=== PATIENT | female | born 1985 | race Caucasian/White ===

== ENCOUNTER 2024-06-16 12:05 | Emergency (ER) | payer OTHER, SELFPAY ==
[2024-06-16 12:13] VITALS: BP 149/99
--- NOTE | 2024-06-16 12:57 | ED.GENMED ---
History of Present Illness
<Rusty Whitmore PA-C - Last Filed: 06/16/24 15:29>
General
Chief Complaint: Headache
Source: patient
Exam Limitations: none
Time Seen by Provider: 06/16/24 12:43
History of Present Illness
History of Present Illness:
38-year-old female with history of migraines presents with persistent headache for the past week and a half. Right-sided headache. She has felt this way before with prior migraines. She notes a gradual onset headache. This is not sudden onset.
No vomiting she notes slight photosensitivity. No arm leg numbness or weakness. No fevers. She tried her breakthrough medication without relief. She tried over the [id number] medications without relief.
Past History
<Rusty Whitmore PA-C - Last Filed: 06/16/24 15:29>
Past History
ED Past Medical History: Arrthythmia (Palpitations), HTN and Other (Migraines, MTHFR, endometriosis, Trigeminal Neuralgia, PCOS, C-diff (15 years ago))
ED Past Surgical History: Gynecological (Ovarian cyst, Uterine fibroids, Uterine ablation. Lap for her endometriosis and was on the ovary and around the bowel), Tonsilectomy and Other (Breast reduction, wisdom teeth, Sinus surgery, )
Social History
Tobacco: Former smoker
Alcohol: None
Drug: Marijuana (Medical marijuana)
Personal: Other (Seperated)
Living: with family
Employment: Not employed (pt recently fired from her job. Stressed, insurance change so cannot get her migraine meds that used to help)
Family History
Family History: Other (Noncontributory)
Phy Exam
<MILTON Sharma Last Filed: 06/16/24 15:29>
Physical Exam
Physical Exam:
General: Well-appearing female no distress
HEENT: Normocephalic atraumatic pupils equal round reactive to light TMs normal extract motion intact
Heart: Regular rate and rhythm no murmurs lungs: Clear no wheeze or rales
Neurologic: Alert and oriented no facial asymmetry normal gait conversing appropriately
Course
<Rusty Whitmore PA-C - Last Filed: 06/16/24 15:29>
Orders/Labs/Results
Orders:
Orders
06/16/24 12:55
0.9% Sodium Chloride 1000 ml [Nss] 1,000 ml IV BOLUS
Diphenhydramine [Benadryl] 25 mg IV NOW STA
Ketorolac [Toradol] 15 mg IV NOW STA
Prochlorperazine [Compazine] 10 mg IV NOW STA
06/16/24 14:40
CT Facial Bones W/o Iv Contras Urgent
Comment:
Reason For Exam: right facial pain and headache
CT Head W/o Iv Contrast Urgent
Comment:
Reason For Exam: headache
06/16/24 15:33
Dexamethasone Sod Phosphate [Decadron] 10 mg IV NOW STA
HYDROmorphone [Dilaudid] 0.5 mg IV NOW STA
Vital Signs
Initial and Last Documented VS:
Initial Vital Signs
Temp Pulse Resp BP Pulse Ox
98.8 F 93 17 149/99 97
06/16/24 12:13 06/16/24 12:13 06/16/24 12:13 06/16/24 12:13 06/16/24 12:13
Last Documented Vital Signs
Temp Pulse Resp BP Pulse Ox
98.4 F 78 18 120/87 98
06/16/24 17:28 06/16/24 17:28 06/16/24 17:28 06/16/24 17:28 06/16/24 17:28
<Toy García PA-C - Last Filed: 06/16/24 19:12>
Orders/Labs/Results
Orders:
Orders
06/16/24 12:55
0.9% Sodium Chloride 1000 ml [Nss] 1,000 ml IV BOLUS
Diphenhydramine [Benadryl] 25 mg IV NOW STA
Ketorolac [Toradol] 15 mg IV NOW STA
Prochlorperazine [Compazine] 10 mg IV NOW STA
06/16/24 14:40
CT Facial Bones W/o Iv Contras Urgent
Comment:
Reason For Exam: right facial pain and headache
CT Head W/o Iv Contrast Urgent
Comment:
Reason For Exam: headache
06/16/24 15:33
Dexamethasone Sod Phosphate [Decadron] 10 mg IV NOW STA
HYDROmorphone [Dilaudid] 0.5 mg IV NOW STA
Vital Signs
Initial and Last Documented VS:
Initial Vital Signs
Temp Pulse Resp BP Pulse Ox
98.8 F 93 17 149/99 97
06/16/24 12:13 06/16/24 12:13 06/16/24 12:13 06/16/24 12:13 06/16/24 12:13
Last Documented Vital Signs
Temp Pulse Resp BP Pulse Ox
98.4 F 78 18 120/87 98
06/16/24 17:28 06/16/24 17:28 06/16/24 17:28 06/16/24 17:28 06/16/24 17:28
<Rusty Whitmore PA-C - Last Filed: 06/16/24 15:29>
MDM/Problems Addressed
Differential Diagnosis Includes:
Headache. Not sudden in onset. Typical and consistent with her prior migraines. No fever to suggest infectious source. Considered imaging however not indicated at this time. Will treat with medication including fluids Compazine Benadryl Toradol
<Toy García PA-C - Last Filed: 06/16/24 19:12>
*Critical Care Note
Total Time (30-74mins, 75-104mins- exclusive of procedures): Not Applicable
<Rusty Whitmore PA-C - Last Filed: 06/16/24 15:29>
Update Note
Update Note:
Patient with minimal relief with initial cocktail of Compazine Benadryl Toradol and fluids. Added Decadron and Dilaudid for significant pain. CT of head and face ordered.
<Toy García PA-C - Last Filed: 06/16/24 19:12>
Update Note
Update Note:
Patient with minimal relief with initial cocktail of Compazine Benadryl Toradol and fluids. Added Decadron and Dilaudid for significant pain. CT of head and face ordered.
Assumed care of patient at shift change from Emile Whitmore PA-C, CT shows right sinusitis which is compatible with her source of pain. She is already on Augmentin and will add a course of prednisone for symptomatic relief. Encouraged ENT
follow-up
ED Attending Note
<Rusty Whitmore PA-C - Last Filed: 06/16/24 15:29>
-
Portions of this chart may have been created with voice recognition software.� Occasional wrong word or��sound alike� substitutions may have occurred due to the inherent limitations of voice recognition software.
Discharge Plan
Departure
Patient Disposition: Home (Routine Discharge)
Date of Disposition: 06/16/24
Time of Disposition: 16:20
Patient with high blood pressure during this ER visit?: No
Discharge Problem:
Acute maxillary sinusitis
Instructions: Migraines (DC)
Prescriptions:
New
prednisone 20 mg tablet
40 mg PO DAILY 5 Days Qty: 10 0RF
No Action
valacyclovir 500 MG tablet
500 mg PO DAILY
multivitamin [Daily Multi-Vitamin] Tablet
1 tab PO DAILY
atenolol 100 mg Tablet
100 mg PO DAILY
olanzapine 2.5 mg Tablet
2.5 mg PO DAILY
zolmitriptan [Zomig] 5 mg Tablet
5 mg PO ONCE PRN (Reason: migraine)
Ubrelvy 50 mg Tablet
50 mg PO ONCE PRN (Reason: pain)
olanzapine 2.5 mg tablet
2.5 mg PO DAILY Qty: 5 0RF
doxycycline hyclate 100 mg capsule
100 mg PO BID 5 Days Qty: 10 0RF
vancomycin 25 mg/mL recon soln
125 mg PO BID 7 Days Qty: 70 0RF
Referrals:
Chin Batista CRNP [Family Provider] -
Activity Restrictions/Additional Instructions:
Continue antibiotics
Start steroids
Follow up with your ENT doctor
Interventions
Interventions:
*Risk Screen - Suicide Last Done: 06/16/24 13:42
*General Assessment Last Done: 06/16/24 13:42
*Neglect/Abuse Screening Last Done: 06/16/24 13:42
ED- Fall Risk Assessment Last Done: 06/16/24 14:11
*ED COVID-19 Vaccine History Last Done: 06/16/24 13:42
*Nursing Disposition Last Done: 06/16/24 17:28
ED- Neurological Assessment Last Done: 06/16/24 14:11
Discharge Date and Time
Discharge Date/Time: 06/16/24 17:28
Print Language: NICARAGUAN
[2024-06-16 13:20] VITALS: BMI 37.9
[2024-06-16] MEDS: TORADOL 15 MG IV (13:28)
[2024-06-16] MEDS: NSS 1000 IV (13:28)
[2024-06-16] MEDS: COMPAZINE 10 MG IV (13:29)
[2024-06-16] MEDS: BENADRYL 25 MG IV (13:29)
[2024-06-16 13:37] VITALS: BP 128/77
[2024-06-16 15:00] VITALS: BP 128/93
[2024-06-16] MEDS: DECADRON 10 MG IV (15:43)
[2024-06-16] MEDS: DILAUDID 0.5 MG IV (15:43)
[2024-06-16 17:07] VITALS: BP 120/87
[2024-06-16 17:28] VITALS: BP 120/87
== END 2024-06-16 17:28 | disposition home or self-care (01) ==
LOC: EMR 12:05
PROVIDERS: EMERGENCY PHYSICIAN Emergency Medicine; FAMILY PHYSICIAN Nurse Practitioner Family
DX: J01.00 Acute maxillary sinusitis, unspecified (principal); I10 Essential (primary) hypertension; Z87.891 Personal history of nicotine dependence
CPT/HCPCS: 99284; 96374; 96375; 70450; 70486

== ENCOUNTER 2024-06-24 22:46 | Emergency (ER) | payer OTHER, SELFPAY ==
[2024-06-24 22:55] VITALS: BP 141/94
[2024-06-25 00:30] VITALS: BMI 38.7
[2024-06-25 00:33] VITALS: BP 157/103
[2024-06-25] MEDS: MARCAINE 0.5% W/EPI DENTAL CARTDRIDGE 1 CARTRIDGE INJ (01:01)
--- NOTE | 2024-06-25 01:11 | ED.GENMED ---
History of Present Illness
General
Chief Complaint: Oral/Mouth Problem
Source: patient
Exam Limitations: none
Time Seen by Provider: 06/25/24 00:27
Nursing documentation reviewed up to this point in time: agreed with
History of Present Illness
History of Present Illness:
This is a 38-year-old woman who has history of chronic migraine headaches, chronic sinusitis and prior history of trigeminal neuralgia. She follows regularly with a neurologist as well as ENT specialist.
She complains of at least 3-week history of persistent right maxillary facial/sinus pain and initially presented to this ED June 16 with right facial pain/right sided headache which she, at the time, felt that this was typical of her migraine
headache. Initially no relief with her usual migraine cocktail of medications then reported moderate improvement after an IV dose of Dilaudid. CT of the head and facial bones showed right maxillary sinus inflammation concerning for right maxillary
sinusitis. Patient had already been started on Augmentin as per her ENT specialist and was prescribed a short course of prednisone. Despite completing a course of antibiotic and the prednisone she reports continued right maxillary sinus pain,
right anterior lateral dental pain. Pain is worse with chewing on the right side. Worse with palpation of her right maxillary sinus region. She has not had a fever, no facial swelling nor redness. No sore throat.
She followed up with her neurologist on June 20 and underwent heart usual every 3-month Botox injections to bilateral face and scalp region for her chronic migraine headaches. Despite Botox she continues with pain.
She also followed up with her ENT specialist on June 21 and underwent fiberoptic nasal scope procedure with reported no evidence of acute sinusitis. She was prescribed nasal washes by her ENT specialist but thus far no improvement in pain.
She does admit that the Dilaudid offered temporary relief and was hoping for additional narcotic pain medication.
She is unsure if pain is exacerbation of trigeminal neuralgia which occurred a number of years ago after a right posterior molar extraction. She states at that time she had no relief with trial of gabapentin, no relief with Elavil.
Her last visit with dentist was November of this year.
Past History
Past History
ED Past Medical History: Arrthythmia (Palpitations), HTN and Other (Migraines, MTHFR, endometriosis, Trigeminal Neuralgia, PCOS, C-diff (15 years ago))
ED Past Surgical History: Gynecological (Ovarian cyst, Uterine fibroids, Uterine ablation. Lap for her endometriosis and was on the ovary and around the bowel), Tonsilectomy and Other (Breast reduction, wisdom teeth, Sinus surgery, )
Social History
Tobacco: Former smoker
Alcohol: None
Drug: Marijuana (Medical marijuana)
Personal: Other (Seperated)
Living: with family
Employment: Not employed (pt recently fired from her job. Stressed, insurance change so cannot get her migraine meds that used to help)
Family History
Family History: Other (Noncontributory)
Phy Exam
Physical Exam
Physical Exam:
GENERAL: Alert , in no apparent distress. Intermittently pressing/palpating her right maxillary facial region.
EYE: anicteric
NECK: Supple, nontender, no meningismus, no significant adenopathy.
ENT: posterior pharynx is clear, oral mucosa is moist. TM clear b/l, nares patent. Mild tenderness palpation right maxillary region as well as mild to moderate tenderness right upper premolar. No evidence of dental caries nor gingival erythema nor
abscess formation.
CARDIAC: Regular rate and rhythm. no murmur.
LUNGS: Clear breath sounds bilaterally, no acute respiratory distress, no wheezes/rales/rhonchi
ABDOMEN: Soft, nondistended, without focal tenderness
NEUROLOGICAL: Alert and oriented x3, no focal neuro deficits. Gait is levine and steady.
SKIN: Warm and dry, normal color, skin intact. No rash.
MUSCULOSKELETAL: No C/C/E. peripheral pulses are full and equal b/l. No palpable tenderness.
PSYCH: Normal and appropriate interaction.
Course
Orders/Labs/Results
Orders:
Orders
06/25/24 00:51
Bupivacaine HCl/Epinephrine [Marcaine 0.5% W/Epi Dental [place]] 1 cartridge INJ OR ONE
Vital Signs
Initial and Last Documented VS:
Initial Vital Signs
Temp Pulse Resp BP Pulse Ox
98.4 F 72 20 141/94 97
06/24/24 22:55 06/24/24 22:55 06/24/24 22:55 06/24/24 22:55 06/24/24 22:55
Last Documented Vital Signs
Temp Pulse Resp BP Pulse Ox
98.4 F 69 18 157/103 97
06/24/24 22:55 06/25/24 01:15 06/25/24 01:15 06/25/24 00:33 06/25/24 01:15
Procedures
Dentalgia
Dental Block: Nerve Block (Right infraorbital nerve block)
Bupivacaine 0.5%/Epi Dental cartridge administered?: Yes
Pt tolerated procedure well w/ no immediate adverse effects?: Yes
MDM/Problems Addressed
Differential Diagnosis Includes:
Patient presents with ongoing right maxillary/facial pain, right premolar dental pain with palpation but no evidence of dental carry and no evidence of dental abscess on recent CT of the facial bones June 16.
Concern however for focal dental nerve root irritation versus an element of trigeminal neuralgia.
Lengthy discussion with patient that we generally do not prescribe narcotics for ongoing conditions and recommend she discuss pain management with her primary care physician versus her neurologist/ENT specialist.
She is agreeable however to local dental block with bupivacaine. If this is effective recommend she touch base with her dentist tomorrow for further evaluation.
*Pulse Oximetry
Patient hypoxic: no
*Critical Care Note
Total Time (30-74mins, 75-104mins- exclusive of procedures): Not Applicable
Update Note
Update Note:
06/25/2024 0111 AM
After right side infraorbital nerve block with bupivacaine patient reports complete relief of right maxillary sinus/right dental pain.
Will discharge to home and recommend she call her dentist tomorrow for further evaluation.
I have also encouraged her to continue close follow-up with her neurologist as well as ENT specialist.
ED Attending Note
-
Portions of this chart may have been created with voice recognition software.� Occasional wrong word or��sound alike� substitutions may have occurred due to the inherent limitations of voice recognition software.
Discharge Plan
Departure
Patient Disposition: Home (Routine Discharge)
Date of Disposition: 06/25/24
Time of Disposition: 01:11
Patient with high blood pressure during this ER visit?: No
Condition: Good
Discharge Problem:
Dentalgia, Right-sided face pain
Instructions: Dental Pain (DC)
Prescriptions:
No Action
valacyclovir 500 MG tablet
500 mg PO DAILY
multivitamin [Daily Multi-Vitamin] Tablet
1 tab PO DAILY
atenolol 100 mg Tablet
100 mg PO DAILY
olanzapine 2.5 mg Tablet
2.5 mg PO DAILY
zolmitriptan [Zomig] 5 mg Tablet
5 mg PO ONCE PRN (Reason: migraine)
Ubrelvy 50 mg Tablet
50 mg PO ONCE PRN (Reason: pain)
olanzapine 2.5 mg tablet
2.5 mg PO DAILY Qty: 5 0RF
doxycycline hyclate 100 mg capsule
100 mg PO BID 5 Days Qty: 10 0RF
vancomycin 25 mg/mL recon soln
125 mg PO BID 7 Days Qty: 70 0RF
prednisone 20 mg tablet
40 mg PO DAILY 5 Days Qty: 10 0RF
Referrals:
Chin Batista CRNP [Family Provider] -
Activity Restrictions/Additional Instructions:
Call your dentist tomorrow for further evaluation of ongoing right maxillary sinus/dental pain.
Interventions
Interventions:
*Risk Screen - Suicide Last Done: 06/24/24 22:55
*General Assessment Last Done: 06/24/24 22:55
*Neglect/Abuse Screening Last Done: 06/24/24 22:55
ED- Fall Risk Assessment Last Done: 06/24/24 22:55
*ED COVID-19 Vaccine History Last Done: 06/24/24 22:55
*Nursing Disposition Last Done: 06/25/24 01:17
Discharge Date and Time
Discharge Date/Time: 06/25/24 01:18
Print Language: LITHUANIAN
== END 2024-06-25 01:18 | disposition home or self-care (01) ==
LOC: EMR 22:46
PROVIDERS: EMERGENCY PHYSICIAN Emergency Medicine; FAMILY PHYSICIAN Nurse Practitioner Family
DX: K08.89 Other specified disorders of teeth and supporting structures (principal); R51.9 Headache, unspecified; I10 Essential (primary) hypertension; Z87.891 Personal history of nicotine dependence
CPT/HCPCS: 99284; 64400

== ENCOUNTER 2024-11-14 23:28 | Inpatient (IN) | payer OTHER, SELFPAY ==
[2024-11-14 13:49] VITALS: BP 117/79
[2024-11-14 14:07] LABS: % Basophils 0.3 % (0-2); % Eosinophils 0.2 % (0-6); % Immature Granulocytes 0.4 % (0-0.5); % Lymphocytes 12.7 % (20.5-51.1); % Monocytes 5.2 % (1.7-9.3); % Neutrophils 81.2 % (42.2-75.2); Absolute Basophils 0.1 10^3/uL (0-0.2); Absolute Immature Granulocytes 0.1 10^3/uL (0-0.05); Absolute Monocytes 0.8 10^3/uL (0.1-0.6); Hematocrit 43.4 % (37.0-47.0); Hemoglobin 14.7 g/dL (12.0-16.0); Mean Corp Hgb Conc. 33.9 g/dL (33.0-37.0); Mean Corpuscular Hgb 30.5 pg (27.0-31.0); Mean Platelet Volume 10.2 fL (7.4-10.4); Nucleated Red Blood Cells % 0 %; Platelet Count 367 10^3/uL (130-400); Red Blood Cell Count 4.82 10^6/uL (4.20-5.40); Red Cell Dist. Width 12.7 % (11.5-14.5)
[2024-11-14 14:35] LABS: HCG, Serum Qualitative Screen Negative
[2024-11-14 14:39] LABS: ALT (SGPT) 98 U/L (0-35); AST (SGOT) 62 U/L (14-36); Albumin 4.2 g/dl (3.5-5.0); Alkaline Phosphatase 76 U/L (38-126); Blood Urea Nitrogen 11 mg/dl (7-17); Carbon Dioxide 22 mmol/L (22-30); Chloride 102 mmol/L (98-107); Glucose 145 mg/dl (70-99); Lipase 120 U/L (23-300); Potassium 4.7 mmol/L (3.5-5.1); Sodium 135 mmol/L (135-145); Total Bilirubin 0.6 mg/dl (0.2-1.3); Total Protein 7.2 g/dl (6.3-8.2); eGFR > 60.00
--- NOTE | 2024-11-14 17:32 | ED.GENMED ---
History of Present Illness
General
Chief Complaint: Abdominal Pain
Source: patient
Time Seen by Provider: 11/14/24 17:13
History of Present Illness
History of Present Illness:
39-year-old female presents to the emergency room complaining of abdominal pain. Patient states she began Trulicity about 2 weeks ago. About a week ago she began having some bloody stool. Bloody stool stopped after about 24 hours. Over the past
couple days she has developed abdominal pain. Describes it as a crampy type pain which is constant but waxes and wanes in intensity. No nausea or vomiting. She not had a bowel movement in a couple days now. She denies any previous abdominal
operations. She has had irregular menstrual periods recently. No fever.
Past History
Past History
ED Past Medical History: Arrthythmia (Palpitations), HTN and Other (Migraines, MTHFR, endometriosis, Trigeminal Neuralgia, PCOS, C-diff (15 years ago))
ED Past Surgical History: Gynecological (Ovarian cyst, Uterine fibroids, Uterine ablation. Lap for her endometriosis and was on the ovary and around the bowel), Tonsilectomy and Other (Breast reduction, wisdom teeth, Sinus surgery, )
Social History
Tobacco: Former smoker
Alcohol: None
Drug: Marijuana (Medical marijuana)
Personal: Other (Seperated)
Living: with family
Employment: Not employed (pt recently fired from her job. Stressed, insurance change so cannot get her migraine meds that used to help)
Family History
Family History: Other (Noncontributory)
Phy Exam
Physical Exam
Physical Exam:
General: Awake, Alert, Oriented X3. No acute distress.
Vitals: unremarkable
Head: Atraumatic
Eyes: Pupils equal, EOMI
Throat: Airway intact, no exudates
Neck: Trachea midline
Lungs: Clear and equal b/l
Heart: Regular rate, no murmurs
Abd: Soft, Nontender, No pulsatile mass
Neuro: Nonfocal
Skin: Warm, dry, no rash
Extremities: pulses equal b/l, no edema
Course
Orders/Labs/Results
Orders:
Orders
11/14/24 13:54
Test Result ONCE
11/14/24 13:57
Complete Blood Count/With Diff Urgent
Comprehensive Metabolic Panel Urgent
HCG, Serum Qualitative Screen Urgent
Comment: Notify provider if positive test present
Lipase Urgent
11/14/24 17:31
CT Abd/pelvis W Iv Cont Urgent
Comment:
Reason For Exam: left lower abd pain, diarrhea
11/14/24 18:02
HYDROmorphone [Dilaudid] 1 mg IV NOW STA
Ondansetron Injectable [Zofran] 4 mg IV NOW STA
11/14/24 20:25
Ketorolac [Toradol] 15 mg IV NOW STA
11/14/24 20:29
Stool Culture Urgent
SRIRAM Source: Feces/Stool
Specimen Description:
Date Specimen was Collected: 11/15/24
Time Specimen was Collected: 00:56
11/14/24 20:30
0.9% Sodium Chloride 1000 ml [Nss] 1,000 ml IV 200 mls/hr
11/14/24 22:39
Admit/Transfer Patient As Directed
Co-Sign Provider:
Level of Care: Inpatient admission
Assign to:: Medical/Surgical
Physician / Group: Margarito Lan
Diagnosis: colitis
Reason for Hospitalization: colitis
Expected length of stay greater than two midnights?: Yes
ELOS- Estimated Length of Stay in days: 3
I certify the patient meets the requirements for IP care: Yes
Bisacodyl [Dulcolax] 10 mg RECTAL NOW STA
11/14/24 22:40
PRN Pain Medication Management As Directed
May give lesser potent ordered pain med per pt: Yes
preference::
Protocol:: Medication orders for pain may be administered in a
manner that supports deferring to patient preference
when the pt is:
- Requesting an ordered lesser potent pain medication.
Least to most potent pain medications are defined
as: acetaminophen < NSAID < tramadol < opioids
(morphine, oxycodone, hydromorphone).
- Requesting a lesser dose of the same medication IF
ORDERED.
- Requesting a less intrusive route of administration
if both routes are prescribed by the provider (PO <
IV).
11/14/24 22:41
Code Status As Directed
Resuscitation Status: Full Code
11/14/24 23:03
Glycerin [Glycerin Suppository Adult] 1 supp RECTAL NOW STA
11/15/24 00:18
HYDROmorphone [Dilaudid] 0.5 mg IV Q4HPRN PRN
Ondansetron HCl [Zofran] 4 mg PO Q6H PRN
11/15/24 00:18
Consult Notification Routine
Specialty to Notify: Gastroenterology
Date consulting provider notified: 11/15/24
Time consulting provider notified: 07:13
Notified:: Provider
Comment: TT Dr Milan
GASTROINTESTINAL CONSULT Routine
Consulting Provider: Cj Milan
Was physician already notified: No
Reason for consult: Pancolitis
Activity As Directed
Activity Level: Ambulate
Pneumatic Compression Sleeves As Directed
Type: Knee high
Vital Signs As Directed
Frequency: Per unit guidelines
Weight As Directed
Frequency: Once
DX Deep Vein Thrombosis Video Routine
11/15/24 02:00
Ketorolac [Toradol] 15 mg IV Q6HPRN PRN
Piperacillin/Tazo 3.375 Gram [Zosyn] 3.375 gram in 50 ml IV Q6H
11/15/24 06:22
Basic Metabolic Panel IN AM
Complete Blood Count/No Diff IN AM
11/15/24 08:00
Acyclovir [Zovirax] 400 mg PO BID
Atenolol [Tenormin] 25 mg PO BID
Fluoxetine HCl [Prozac] 60 mg PO DAILY
Pregabalin [Lyrica] 75 mg PO BID
11/16/24 06:00
Basic Metabolic Panel IN AM
Complete Blood Count/No Diff IN AM
11/17/24 06:00
Basic Metabolic Panel IN AM
Complete Blood Count/No Diff IN AM
Abnormal Lab Results
11/14/24
13:57
WBC 16.0 H 10^3/uL
(4.8-10.8)
Abs Immat Gran (auto) 0.1 H 10^3/uL
(0-0.05)
Absolute Neuts (auto) 13.0 H 10^3/uL
(1.4-6.5)
Absolute Monos (auto) 0.8 H 10^3/uL
(0.1-0.6)
Neutrophils % 81.2 H %
(42.2-75.2)
Lymphocytes % 12.7 L %
(20.5-51.1)
Glucose 145 H mg/dl
(70-99)
AST 62 H U/L
(14-36)
ALT 98 H U/L
(0-35)
11/14/24 13:57
11/14/24 13:57
Vital Signs
Initial and Last Documented VS:
Initial Vital Signs
Temp Pulse Resp BP Pulse Ox
97.9 F 74 16 117/79 99
11/14/24 13:49 11/14/24 13:49 11/14/24 13:49 11/14/24 13:49 11/14/24 13:49
Last Documented Vital Signs
Temp Pulse Resp BP Pulse Ox
97.8 F 60 18 126/71 96
11/15/24 07:56 11/15/24 07:58 11/15/24 07:56 11/15/24 07:58 11/15/24 07:56
MDM/Problems Addressed
Differential Diagnosis Includes:
diverticulitis, appy, kidney stone,
MDM/Problems Addressed:
Patient presents with diarrhea, crampy abdominal pain. She began having symptoms about a week ago which is about 1 week after starting Trulicity. Initially the stool was bloody but has since become watery without blood. CT shows diffuse colitis
which is mild. Discussed results with patient. She feels she is in too much pain to go home. Was the hospitalist to admit for symptom control. I will defer abx to admission team/GI as this may very well be medication effect or even inflammatory
bowel dz.
*Radiology
Radiology exam reviewed: radiology read reviewed
*Pulse Oximetry
Patient hypoxic: no
*Critical Care Note
Total Time (30-74mins, 75-104mins- exclusive of procedures): Not Applicable
ED Attending Note
-
Portions of this chart may have been created with voice recognition software.� Occasional wrong word or��sound alike� substitutions may have occurred due to the inherent limitations of voice recognition software.
Discharge Plan
Departure
Patient Disposition: Admit
Presentation/result/management discussed w/ accepting MD/DO: Hospitalist
Condition: Fair
Discharge Problem:
Abdominal pain, Colitis
Interventions
Interventions:
*Risk Screen - Suicide Last Done: 11/14/24 13:49
*General Assessment Last Done: 11/14/24 13:49
*Neglect/Abuse Screening Last Done: 11/14/24 17:58
ED- Fall Risk Assessment Last Done: 11/14/24 19:47
*ED COVID-19 Vaccine History Last Done: 11/14/24 13:49
*Nursing Disposition Last Done: 11/14/24 23:58
BE-Hplvsh-Mtxwucugvz Assessment Last Done: 11/14/24 18:00
Discharge Date and Time
Discharge Date/Time: 11/15/24 00:21
[2024-11-14 17:57] VITALS: BP 129/73
[2024-11-14] MEDS: DILAUDID 1 MG IV (18:14)
[2024-11-14] MEDS: ZOFRAN 4 MG IV (18:15)
[2024-11-14 20:11] VITALS: BP 113/74
[2024-11-14 20:13] VITALS: BP 113/74
[2024-11-14] MEDS: TORADOL 15 MG IV (20:29)
[2024-11-14] MEDS: NSS 1000 IV ×2 (20:30→23:03)
[2024-11-14] MEDS: NSS IV (20:34)
--- NOTE | 2024-11-14 21:16 | HPS.HSE ---
Addendum entered and electronically signed by Margarito Lan DO 11/14/24 23:48:
Patient seen and examined independently. Agree with findings and plan as set forth by VIRGIL Dwyer.
Patient is a 39y F with PMH significant for HTN, DM-II and PCOS who presents to ED complaining of abdominal pain. Patient states that she started Trulicity about 2 weeks ago. One week ago she developed diarrhea and reports multiple episodes of
loose, bloody stools. Her last BM was Monday - no BM at all since that time. She has noted increasing abdominal discomfort since then with abdominal distention. Over the past 24 hours she developed N/V with non-bloody emesis. Patient denies
any prior history of similar symptoms.
Ass:
Pancolitis
Benign Hypertension
Migraines / Trigeminal Neuralgia
DM-II
PCOS
Plan:
Admit for further evaluation and treatment.
? infectious versus inflammatory versus med-related.
No BM in several days - though liquid stool seen throughout colon on CT.
Suppository given in the ED.
Hold Trulicity.
IV abx for now pending stool culture data.
Supportive care / IVFs / etc.
GI evaluation.
Follow for clinical improvement.
Continue usual outpatient medications.
Original Note:
Family Physician
-
Family Physician: VIRGIL Stoll
Chief Complaint
-
abdominal pain and cramping
History of Present Illness
Patient is a 39-year-old female with past medical history significant for hypertension, palpitations, DM II, PCOS, endometriosis and trigeminal neuralgia who presented to [place] [facility] ED fo evaluation of abdominal pain and cramping. Patient states
starting approximately a week ago she started with diarrhea and then had a few episodes of bright red blood when she felt she needed to have a bowel movement. She does mention that she has not had a menstrual cycle in several months and not sure if
blood was from that. Patient stated symptoms resolved and Monday she had a small formed bowel movement. Since Monday she reports that she has had no bowel movement at all and starting last night she had severe pain and cramping that has not let
up. She does associate the last 24-hours of pain and cramping with nausea and vomiting. She mentions she started Trulicity 2 weeks ago. Patient denies any fever, chills, cough, shortness of breath, chest pain, palpitations or urinary symptoms.
Medical History
Past Medical History
Past Medical History: Reports Other
Additional Past Medical History:
benign hypertension
palpitations
migraines
DM II
PCOS
endometriosis
trigeminal neuralgia
MTHFR
Past Surgical History: Reports Other
Additional Past Surgical History:
tonsillectomy
breast reduction
wisdom teeth
ovarian cyst
uterine fibroids
uterine ablation
Lap for endometriosis on ovary and bowel
Social History
Tobacco: Vaping (vaping for past 3 years, does have 2pack year history with cigarettes)
Alcohol: None
Drug: Marijuana (medical marijuana for migraines and trigeminal neuralgia)
Personal: Partner
Living: With Roomate (boyfriend)
Employment: Employed
Family History
Family History: Not pertinent
Allergies / Home Medications
Allergies reflects when Allergies were last updated in [facility].
Home Medications with original date entered in [facility]
Allergy/Medication List:
Allergies
Allergy/AdvReac Type Severity Reaction Status Date / Time
adhesive tape Allergy Hives Verified 11/14/24 13:53
cefaclor [From Ceclor] Allergy Anaphylaxis Verified 11/14/24 13:53
Cephalosporins Allergy Anaphylaxis Verified 11/14/24 13:53
latex Allergy Hives Verified 11/14/24 13:53
nitrofurantoin Allergy Severe Verified 11/14/24 13:53
[From Macrobid] joint pain
sulfamethoxazole Allergy hives/sweat Verified 11/14/24 13:53
[From Bactrim] ing
sumatriptan Allergy Anaphylaxis Verified 11/14/24 13:53
trimethoprim [From Bactrim] Allergy hives/sweat Verified 11/14/24 13:53
ing
Home Medications
acyclovir 400 mg tablet 400 mg PO BID 11/14/24
atenolol 25 mg tablet 25 mg PO BID 11/14/24
fluoxetine 60 mg tablet 60 mg PO DAILY 11/14/24
ondansetron HCl 4 mg tablet 4 mg PO Q6H PRN nausea/vomiting 11/14/24
pregabalin 75 mg capsule 75 mg PO BID 11/14/24
Review of Systems
-
History Source: Patient
Constitutional: Reports No Symptoms
EENT: Reports No Symptoms
Respiratory: Reports No Symptoms
Cardiac: Reports No Symptoms
Abdomen/GI: Reports Abdominal Pain, Nausea, Vomiting, Diarrhea, Constipated and Bloody Stools
: Reports No Symptoms
Musculoskeletal: Reports No Symptoms
Skin: Reports No Symptoms
Neurological: Reports No Symptoms
Endocrine: Reports No Symptoms
Hematologic/Lymphatic: Reports No Symptoms
Psych: Reports No Symptoms
Physical Exam
Vital Signs
Vital Signs
Temp Pulse Resp BP Pulse Ox
98.8 F 74 18 113/74 98
11/14/24 17:59 11/14/24 20:13 11/14/24 20:13 11/14/24 20:13 11/14/24 20:13
Physical Exam
General: Well Developed, Well Nourished, Conversant and Obese
HEENT: NormoCephalic, Moist mucous membranes and Atraumatic
Respiratory: Clear and Non Labored Respirations
Cardiac: S1/S2 and Regular Rhythm; No Murmur, Rub or Gallop
Breast: Deferred by me
GI: Soft, Normal Bowel Sounds (LUQ hyperactive bowel sounds, hypoactive in all other quadrants) and Tender; No Organomegaly
Rectal: Deferred by Provider
Genito-urinary: Deferred by me
Musculoskeletal: No Clubbing, No Cyanosis and No Edema
Skin: Warm and IV/Catheter Site; No Rash
Neuro: Awake, Alert, AO x 3 and Nonfocal/grossly intact
Psych: Calm and Intact Judgment/Insight
Laboratory Results
-
11/14/24 13:57
11/14/24 13:57
Laboratory Results
Total Bilirubin 0.6 mg/dl (0.2-1.3) 11/14/24 13:57
AST 62 U/L (14-36) H 11/14/24 13:57
ALT 98 U/L (0-35) H 11/14/24 13:57
Alkaline Phosphatase 76 U/L (38-126) 11/14/24 13:57
Lipase 120 U/L (23-300) 11/14/24 13:57
Data Reviewed
-
CT Scan: Report Reviewed by me (Abd/Pelvis: 1. Mild distention of the ascending colon, transverse colon, and descending colon with liquid stool. Mild circumferential wall thickening and mucosal hyperenhancement throughout the colon suggesting a
MILD ACUTE PANCOLITIS. 2. Moderate amount of fecal material and mild diverticulosis)
Lab Data: Labs Reviewed by me (WBC 16.0)
Impression/Plan
-
IMPRESSION/PLAN:
#colitis
WBC 16.0
Abd/Pelvis CT: 1. Mild distention of the ascending colon, transverse colon, and descending colon with liquid stool. Mild circumferential wall thickening and mucosal hyperenhancement throughout the colon suggesting a MILD
ACUTE PANCOLITIS.
2. Moderate amount of fecal material and mild diverticulosis in the sigmoid colon.
3. SEVERE DIFFUSE HEPATIC STEATOSIS.
4. Mild hepatomegaly.
- Admit to med/surg
- IV Zosyn
- 1x Dulcolax suppository
- stool studies
#benign hypertension
#palpitations
- continue atenolol
#trigeminal neuralgia
- continue pregabalin
#migraines
- continue home regimen PRN
#DM II
stopped Trulicity after having abdominal issues last week
#PCOS
#endometriosis
#MTHFR
Code Status: Full code
DVT Prophylaxis: SCDs
[2024-11-14 22:29] VITALS: BP 125/74
[2024-11-14] MEDS: GLYCERIN SUPPOSITORY ADULT 1 SUPP RECTAL (23:11)
[2024-11-15 00:26] VITALS: BP 105/68; BMI 36.2
--- NOTE | 2024-11-15 00:26 | PTCARENOTE ---
Pt arrived onto floor @0026. Pt AAOx3 and able to ambulate into room without assistance. Pt with no complaints of SOB at this time, states pain is 'managable' Pt oriented to room and call castanon; will continue to monitor
[2024-11-15] MEDS: DILAUDID 0.5 MG IV (00:52)
[2024-11-15] MEDS: GLYCERIN SUPPOSITORY ADULT 1 SUPP RECTAL (00:53)
[2024-11-15] MEDS: ZOSYN 50 IV ×4 (01:04→20:26)
[2024-11-15] MEDS: NSS 1000 IV ×3 (06:22→17:53)
[2024-11-15 06:34] LABS: Glucose - Point of Care 89 mg/dl (70-99)
[2024-11-15 07:51] LABS: Hematocrit 38.2 % (37.0-47.0); Hemoglobin 12.4 g/dL (12.0-16.0); Mean Corp Hgb Conc. 32.5 g/dL (33.0-37.0); Mean Corpuscular Hgb 30.5 pg (27.0-31.0); Mean Corpuscular Volume 94.1 fL (81.0-99.0); Mean Platelet Volume 10.5 fL (7.4-10.4); Platelet Count 288 10^3/uL (130-400); Red Blood Cell Count 4.06 10^6/uL (4.20-5.40); Red Cell Dist. Width 13.1 % (11.5-14.5); White Blood Cell Count 8.3 10^3/uL (4.8-10.8)
[2024-11-15 07:57] VITALS: BP 126/71
[2024-11-15] MEDS: PROZAC 60 MG PO (07:58)
[2024-11-15] MEDS: LYRICA 75 MG PO ×2 (07:58→20:27)
[2024-11-15] MEDS: TENORMIN 25 MG PO ×2 (07:58→20:27)
[2024-11-15] MEDS: ZOVIRAX 400 MG PO ×2 (07:58→20:28)
[2024-11-15 08:13] LABS: Blood Urea Nitrogen 10 mg/dl (7-17); Calcium 7.9 mg/dl (8.4-10.2); Carbon Dioxide 23 mmol/L (22-30); Chloride 106 mmol/L (98-107); Estimated Creatinine Clearance > 125 ml/min; Glucose 90 mg/dl (70-99); Potassium 3.9 mmol/L (3.5-5.1); Sodium 136 mmol/L (135-145); eGFR > 60.00
--- NOTE | 2024-11-15 10:30 | CM ---
Pt seen bedside. Initial assessment completed. Admitted for abdominal pain.
Pt reports she lives w/ her boyfriend in a apartment on the 2nd floor. Pt states there are two flights of steps to apartment.
Pt is independent, denies DME for ambulating or daily functioning
Denies VN/PT. Denies any current services
Address, point of contact and insurance verified
PCP: Dr. Batista
Pharmacy: [facility]
Plan: Home; no needs
[2024-11-15] MEDS: MOTRIN 600 MG PO (11:48)
--- NOTE | 2024-11-15 12:40 | CON.GI ---
Addendum entered and electronically signed by Cj Milan DO 11/15/24 18:12:
I saw and examined the patient.
The SHORT ORDER FRY COOK's note was reviewed and I agree with the note.
Comment: Ms Plata is a 39 y.o female with past medical history of HTN, DM, migraines, endometriosis, PCOS, and prior hx of CDI (> 15 yrs ago) who presented to the ED with acute diarrhea with initial non-bloody, watery diarrhea. Notes she started
Trulicity about two weeks ago which seemed to coincide with her symptoms. Later developed a small episode of bright red blood both with wiping and within the toilet. Last colonoscopy > 10-15 years ago (for diarrhea), reportedly normal (no records of
this). No other recent travel, antibiotics or sick contacts. Does note using medical marijuana but no other illicits. Denies any NSAIDs. Denies any family hx of IBD or Celiac disease or CRC. Notes her symptoms eventually resolved over last week over
the weekend, however developed worsening abdominal cramping prompting her to come to the ED. CT imaging found to have mild, pancolitis and was admitted to medicine for further management. Etiology most suspicious for mild, infectious acute colitis
given her symptoms. Trulicity has not been associated with drug-induced colitis and suspect her current constipation is likely secondary to this. Much less likely IBD given acuity of symptoms and overall symptomatology. Doubt ischemia especially
given location/involvement with pancolitis. No other NSAIDs. Fortunately, symptoms improving since admission and tolerating clear liquids.
Recommendations:
- Low-residue, low-fiber diet as tolerated
- Await rest of infectious stool studies. C Diff testing not performed given formed stool
- Would benefit from a colonoscopy as an outpatient in 8-12 weeks, have messaged our office to coordinate outpatient f/u after discharge
- She will need outpatient f/u as well given her hepatic steatosis seen on her recent CT scan
- Strict avoidance of all NSAIDs
- May use acetaminophen as needed for pain, could consider low-dose Bentyl 10 mg TiD for spasms/cramping
- Rest of care per primary team
GI will continue to follow while inpatient. Please call with any questions or concerns.
Original Note:
Consultation
-
Date/Time Consultation Requested: 11/15/24 0018
Date/Time Consultation Performed: 11/15/24 1130
Requesting Provider: Dr. Lan
Performing Provider: Dr. Milan/VIRGIL Barreto
Reason for Consultation: colitis
Medical History
Chief Complaint / HPI
Chief Complaint: rectal bleeding
History of Present Illness:
39-year-old female with past medical history of hypertension, diabetes, migraines, endometriosis, trigeminal neuralgia, PCOS, anxiety, prior history of C. difficile approximately 15 years ago who presents to the emergency room with acute onset of
diarrhea followed by episode of blood within the toilet. Presents to the emergency room for further evaluation. Asked to evaluate for the same. Patient states that she was started on Trulicity 2 weeks ago for diabetes. She states that her first
injection went well. After her second injection that she had some associated nausea. She was started on Zofran for this. She then states that she started having loose stools for a couple days. She states that after approximately 24 hours of this
she started having abdominal cramping followed by some blood mixed in with the stools with sediment in the toilet. This was last Monday. She still had abdominal cramping however no bowel movement since last Monday. Because of persistent
abdominal cramping she proceeded to come to the emergency room. She did use a suppository prior to arrival in the emergency room which produced a solid bowel movement. She denies any fevers, chills, melena, dysphagia or dyne aphasia. No early
satiety or unintentional weight loss. She does vape. She does use medical marijuana. She was advised on cessation. As this could contribute to her nausea. She denies any ibuprofen or NSAIDs. She does state that she had a colonoscopy
approximately 15 years ago for diarrhea as well. 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 She states that nothing was found on colonoscopy. She has no family history of colon cancer or inflammatory bowel disease. She
states she has an aunt with diverticulitis. She denies any spoiled food, sick contacts or changes in medication other than the addition of Trulicity. At the present time she is tolerating clear liquid diet. She has no abdominal pain.
Past Medical History
Past Medical History: HTN, NIDDM and Other (Migraines, endometriosis, trigeminal neuralgia, PCOS, anxiety, C. difficile,)
Past Surgical History: Other (Tonsillectomy, breast reduction, wisdom teeth extraction, ovarian cyst removal, uterine fibroids, uterine ablation, laparoscopic intervention for endometriosis on ovary and bowel.)
Social History
Tobacco: Vaping
Alcohol: None
Drug: Marijuana
Family History
Family History: Other (No family history gastrointestinal malignancy or inflammatory bowel disease)
Allergies / Home Medications
Allergy/AdvReac Type Severity Reaction Status Date / Time
adhesive tape Allergy Hives Verified 11/14/24 13:53
cefaclor [From Ceclor] Allergy Anaphylaxis Verified 11/14/24 13:53
Cephalosporins Allergy Anaphylaxis Verified 11/14/24 13:53
latex Allergy Hives Verified 11/14/24 13:53
nitrofurantoin Allergy Severe Verified 11/14/24 13:53
[From Macrobid] joint pain
sulfamethoxazole Allergy hives/sweat Verified 11/14/24 13:53
[From Bactrim] ing
sumatriptan Allergy Anaphylaxis Verified 11/14/24 13:53
trimethoprim [From Bactrim] Allergy hives/sweat Verified 11/14/24 13:53
ing
�Medication �Instructions �Recorded
acyclovir 400 mg tablet 400 mg PO BID 11/14/24
atenolol 25 mg tablet 25 mg PO BID 11/14/24
fluoxetine 60 mg tablet 60 mg PO DAILY 11/14/24
ondansetron HCl 4 mg tablet 4 mg PO Q6H PRN nausea/vomiting 11/14/24
pregabalin 75 mg capsule 75 mg PO BID 11/14/24
Review of Systems
-
All other systems: A 12 pt ROS was Negative except as stated above in HPI
Vital Signs
Temp Pulse Resp BP Pulse Ox
97.8 F 60 18 126/71 96
11/15/24 07:56 11/15/24 07:58 11/15/24 07:56 11/15/24 07:58 11/15/24 07:56
Physical Exam
Exam
General: No Apparent Distress
HEENT: Anicteric
Respiratory: Clear
Cardiac: Regular Rhythm
GI: Soft, Non Tender, Non Distended and Normal Bowel Sounds
Musculoskeletal: No Edema
Skin: Warm and Dry
Neuro: AO x 3
Psych: Calm
Results
WBC 8.3 10^3/uL (4.8-10.8) 11/15/24 06:22
Hgb 12.4 g/dL (12.0-16.0) 11/15/24 06:22
Hct 38.2 % (37.0-47.0) 11/15/24 06:22
MCV 94.1 fL (81.0-99.0) 11/15/24 06:22
Plt Count 288 10^3/uL (130-400) D 11/15/24 06:22
Absolute Neuts (auto) 13.0 10^3/uL (1.4-6.5) H 11/14/24 13:57
Sodium 136 mmol/L (135-145) 11/15/24 06:22
Potassium 3.9 mmol/L (3.5-5.1) 11/15/24 06:22
Chloride 106 mmol/L (98-107) 11/15/24 06:22
Carbon Dioxide 23 mmol/L (22-30) 11/15/24 06:22
BUN 10 mg/dl (7-17) 11/15/24 06:22
Creatinine 0.7 mg/dL (0.6-1.0) 11/15/24 06:22
Calcium 7.9 mg/dl (8.4-10.2) L 11/15/24 06:22
Total Bilirubin 0.6 mg/dl (0.2-1.3) 11/14/24 13:57
AST 62 U/L (14-36) H 11/14/24 13:57
ALT 98 U/L (0-35) H 11/14/24 13:57
Alkaline Phosphatase 76 U/L (38-126) 11/14/24 13:57
Lipase 120 U/L (23-300) 11/14/24 13:57
Diagnostic Image Results:
CT abdomen and pelvis with IV contrast 11/14/2024:
1. Mild distention of the ascending colon, transverse colon, and descending colon with liquid stool. Mild circumferential wall thickening and mucosal hyperenhancement throughout the colon suggesting a MILD ACUTE PANCOLITIS.
2. Moderate amount of fecal material and mild diverticulosis in the sigmoid colon.
3. SEVERE DIFFUSE HEPATIC STEATOSIS.
4. Mild hepatomegaly.
Prior GI Procedures:
EGD: Never
Colonoscopy: Patient states she had colonoscopy approximately 15 years ago in the [facility] area'. She states this was within normal limits
Assessment / Plan
-
39-year-old female with past medical history of hypertension, diabetes, migraines, endometriosis, trigeminal neuralgia, PCOS, anxiety, prior history of C. difficile approximately 15 years ago who presents to the emergency room with acute onset of
diarrhea followed by episode of blood within the toilet.Patient with no further episodes since Monday last week. Abdominal cramping. CT of the abdomen and pelvis with IV contrast shows mild distention of the ascending transverse, descending with
liquid stool. Mild circumferential wall thickening and mucosal hyperenhancement throughout the colon suggesting a mild acute pancolitis. Patient tolerating clear liquids. Currently without any leukocytosis or fever. Had a solid bowel movement.
Therefore not sent off for C. difficile. Patient did require suppository in order to have this bowel movement. No abdominal pain. At this point patient would like to advance diet. No objection. WBC 8.3, hemoglobin 12.4, hematocrit 38.2, platelet
count 288 sodium 136, potassium 3.9, chloride 106, CO2 23, BUN 10, creatinine 0.7, glucose 90
Impression:
Colitis
--Differentials include infectious, viral, medication induced, less likely ischemic or IBD
--Patient already with improved symptoms
Plan:
Patient tolerating clear liquids. Would advance and go on low residue diet. Discussed with patient length.
Discussed with patient would proceed with colonoscopy in 8 weeks time.
Gave patient our card to follow-up with as an outpatient. She can call the office to schedule a follow-up office visit and at that time we will arrange for colonoscopy as an outpatient.
If patient with bowel movements would test for stool studies. First bowel movement was rejected for C. difficile as it was a solid bowel movement.
-
-
Thank you for consultation and allowing me to participate in the patient's care. Please call the vice president for instruction GI physician during the after hours with any questions or concerns.
--- NOTE | 2024-11-15 14:19 | W.PN.HOSP.TC ---
Addendum entered and electronically signed by Zora Laguerre MD 11/15/24 14:59:
I saw and evaluated the patient. I reviewed the resident�s note and agree with findings and plan as documented in the resident�s note.
A/P:
# Generalized abdominal pain Likely from colitis- infectious versus medication induced.
Patient was started on Trulicity 2 weeks ago [employer], hold further.
CT abdomen and pelvis with IV contrast 11/14 noted mild distention of the ascending colon, transverse colon, and descending colon with liquid stool. MILD ACUTE PANCOLITIS. SEVERE DIFFUSE HEPATIC STEATOSIS.
Follow stool studies,
C diff cancelled due to formed stool
Continue Zosyn for now
Fo now, cont clears and ADAT
# Migraine
At home patient is on Ubrelvy, nasal Zomig, Aleve and Benadryl.
Tylenol and Ibuprofen as needed for now
# Essential hypertension
Continue atenolol
# Trigeminal neuralgia
Continue pregabalin
# DM 2
Hold Trulicity
DVT prophylaxis�SCDs
CODE STATUS�full code
Original Note:
Today's Communication/Plan
-
Advance diet as tolerated
Assessment / Plan
Assessment / Plan
39-year-old female with past medical history of hypertension, DM type II admitted for generalized abdominal pain, diarrhea/bloody stools, nausea and vomiting.
Impression/plan
#Generalized abdominal pain
Likely from colitis�infectious versus medication induced.
Patient was started on Trulicity 2 weeks ago, hold.
CT abdomen and pelvis with IV contrast 11/14/2024:
1. Mild distention of the ascending colon, transverse colon, and descending colon with liquid stool. Mild circumferential wall thickening and mucosal hyperenhancement throughout the colon suggesting a MILD ACUTE PANCOLITIS.
2. Moderate amount of fecal material and mild diverticulosis in the sigmoid colon.
3. SEVERE DIFFUSE HEPATIC STEATOSIS.
4. Mild hepatomegaly.
IV fluids
White count normal, afebrile
Stool studies pending
Continue Zosyn
If patient tolerates clear liquids, advance diet as tolerated
#Migraine
At home patient is on�Ubrelvy, nasal Zomig, Aleve and Benadryl.
Ibuprofen as needed
#Essential hypertension
Continue atenolol
#Trigeminal neuralgia
Continue pregabalin
#DM 2
Hold Trulicity
DVT prophylaxis�SCDs
CODE STATUS�full code
Anticipated Discharge: 24 - 48 hours
Subjective/Interval History
-
Date of Service: November 15, 2024
Patient reports that her nausea/vomiting and abdominal pain have improved.
Objective Data
-
Labs:
Laboratory Results
11/15/24
06:22
WBC 8.3
Hgb 12.4
Hct 38.2
Plt Count 288 D
Sodium 136
Potassium 3.9
Chloride 106
Carbon Dioxide 23
BUN 10
Creatinine 0.7
Glucose 90
Calcium 7.9 L
Vital Signs:
Vital Signs
Temp Pulse Resp BP Pulse Ox
97.8 F 60 18 126/71 96
11/15/24 07:56 11/15/24 07:58 11/15/24 07:56 11/15/24 07:58 11/15/24 07:56
I&O
11/14/24 11/15/24 11/16/24
06:59 06:59 06:59
Intake Total 1000 / 1000
Balance 1000 / 1000
Review of Systems
-
All other systems: Reviewed and negative (As per history)
Physical Exam
-
General: Well Developed and No Apparent Distress
HEENT: Normocephalic, Atraumatic and Moist Mucous Membranes
Respiratory: Clear to Auscultation
Cardiac: Regular Rhythm and S1/S2
GI: Soft, Nontender, Nondistended and Normal Bowel Sounds
Skin: Warm and Dry
Neuro: Awake, Alert, Oriented and AO x 3
Psych: Calm
[2024-11-15] MEDS: ZOFRAN 4 MG IV (15:31)
[2024-11-15] MEDS: TORADOL 10 MG PO (15:32)
[2024-11-15 15:51] VITALS: BP 128/81
[2024-11-15 23:00] VITALS: BP 117/68
[2024-11-16] MEDS: NSS 1000 IV ×2 (00:14→05:55)
[2024-11-16] MEDS: ZOSYN 50 IV ×2 (01:54→08:35)
--- NOTE | 2024-11-16 06:22 | W.PN.GI.CBS2 ---
Today's Communication / Plan
-
Advance to low-fiber, low-residue diet. Having more formed stools without any diarrhea or bloody bowel movements since admission. Favor stopping IV abx and would not discharge on oral abx given her history of C Diff. Coordinate outpatient follow-up
with me in December. See rest of care as outlined below. GI will sign-off, please recontact with any questions or concerns.
Assessment / Plan
-
Ms Plata is a 39 y.o female with past medical history of HTN, DM, migraines, endometriosis, PCOS, and prior hx of CDI (> 15 yrs ago) who presented to the ED with acute diarrhea with initial non-bloody, watery diarrhea. Notes she started Trulicity
about two weeks ago which seemed to coincide with her symptoms. Later developed a small episode of bright red blood both with wiping and within the toilet. Last colonoscopy > 10-15 years ago (for diarrhea), reportedly normal (no records of this). No
other recent travel, antibiotics or sick contacts. Does note using medical marijuana but no other illicits. Denies any NSAIDs. Denies any family hx of IBD or Celiac disease or CRC. Notes her symptoms eventually resolved over last week over the
weekend, however developed worsening abdominal cramping prompting her to come to the ED. CT imaging found to have mild, pancolitis and was admitted to medicine for further management. Etiology most suspicious for mild, infectious acute colitis given
her symptoms. Trulicity has not been associated with drug-induced colitis and suspect her current constipation is likely secondary to this. Much less likely IBD given acuity of symptoms and overall symptomatology. Doubt ischemia especially given
location/involvement with pancolitis. No other NSAIDs. Fortunately, symptoms improving since admission and tolerating diet without difficulty and without any further diarrhea or bloody stools.
#Acute, Pancolitis likely Infectious
#Abdominal Discomfort- Resolved
#Previous BRBPR- Resolved
Recommendations:
- Advance diet to low-residue, low-fiber diet
- Stool cultures still pending, C Diff ruled out given formed bowel movement and without any diarrhea this admission
- Favor stopping IV Zosyn and would not discharge on oral abx. Suspect acute, mild infectious colitis, but would not continue abx at this time given her mild symptoms and not to further precipitate CDI
- Would benefit from a colonoscopy as an outpatient in 8-12 weeks given her change in bowel habits and abnormal CT imaging. Coordinated close outpatient follow-up with me in the office on 12/24/2024
- May continue Trulicity as no association with a drug-induced colitis. However, suspect this is causing her mild constipation
- Favor starting Miralax 17 gm BiD once her looser stools have resolved
- She will need outpatient f/u as well given her hepatic steatosis seen on her recent CT scan. This can be addressed as outpatient
- Strict avoidance of all NSAIDs
- May use acetaminophen as needed for pain, could consider low-dose Bentyl 10 mg TiD for spasms/cramping but favor avoiding as not to precipitate constipation
- Rest of care per primary team
Discussed with primary internal medicine team. GI will sign-off, please recontact with any questions or concerns.
Subjective
Subjective
Date of Service: November 16, 2024
- C Diff culture pending given formed brown bowel movement
- Stool culture pending
- Otherwise, no acute events overnight; afebrile and HD-stable
Feeling better without any further abdominal pain/discomfort, loose stools or diarrhea. Had one small BM yesterday after suppository. Tolerated full liquids without any difficulty. No other fevers or other constitutional symptoms and without any
further bloody stools. Hoping to go home later today.
Objective
Data Reviewed
Laboratory Data:
Laboratory Results
Total Bilirubin 0.6 mg/dl (0.2-1.3) 11/14/24 13:57
AST 62 U/L (14-36) H 11/14/24 13:57
ALT 98 U/L (0-35) H 11/14/24 13:57
Alkaline Phosphatase 76 U/L (38-126) 11/14/24 13:57
Lipase 120 U/L (23-300) 11/14/24 13:57
Vital Signs and I&O:
Vital Signs
Temp Pulse Resp BP Pulse Ox
97.6 F 50 16 117/68 97
11/15/24 23:00 11/15/24 23:00 11/15/24 23:00 11/15/24 23:00 11/15/24 23:00
I&O
11/14/24 11/15/24 11/16/24
06:59 06:59 06:59
Intake Total 1000 / 1000 480 / 480
Balance 1000 / 1000 480 / 480
Physical Exam
Physical Exam
HEENT: Anicteric and Moist mucous membranes
Pulmonary: Clear
GI: Soft, Distended (Protuberant abdomen), Non Distended, Non Tender and Normal Bowel Sounds
Extremities: No Edema
Neuro: Non Focal
[2024-11-16 07:10] VITALS: BP 123/85
[2024-11-16 08:11] LABS: ALT (SGPT) 95 U/L (0-35); AST (SGOT) 61 U/L (14-36); Albumin 3.8 g/dl (3.5-5.0); Alkaline Phosphatase 68 U/L (38-126); Blood Urea Nitrogen 5 mg/dl (7-17); Calcium 8.6 mg/dl (8.4-10.2); Carbon Dioxide 25 mmol/L (22-30); Chloride 104 mmol/L (98-107); Estimated Creatinine Clearance > 125 ml/min; Glucose 111 mg/dl (70-99); Potassium 4.4 mmol/L (3.5-5.1); Sodium 136 mmol/L (135-145); Total Bilirubin 0.5 mg/dl (0.2-1.3); Total Protein 6.7 g/dl (6.3-8.2); eGFR > 60.00
[2024-11-16 08:23] LABS: % Basophils 0.6 % (0-2); % Eosinophils 2.4 % (0-6); % Immature Granulocytes 0.5 % (0-0.5); % Lymphocytes 34.4 % (20.5-51.1); % Monocytes 9.6 % (1.7-9.3); % Neutrophils 52.5 % (42.2-75.2); Absolute Eosinophils 0.2 10^3/uL (0-0.7); Absolute Lymphocytes 2.2 10^3/uL (1.2-3.4); Absolute Monocytes 0.6 10^3/uL (0.1-0.6); Absolute Neutrophils 3.3 10^3/uL (1.4-6.5); Hematocrit 41.2 % (37.0-47.0); Hemoglobin 13.6 g/dL (12.0-16.0); Mean Corpuscular Hgb 30.5 pg (27.0-31.0); Mean Corpuscular Volume 92.4 fL (81.0-99.0); Mean Platelet Volume 10.5 fL (7.4-10.4); Nucleated Red Blood Cells % 0 %; Platelet Count 312 10^3/uL (130-400); Red Blood Cell Count 4.46 10^6/uL (4.20-5.40); Red Cell Dist. Width 12.8 % (11.5-14.5); White Blood Cell Count 6.4 10^3/uL (4.8-10.8)
[2024-11-16] MEDS: LYRICA 75 MG PO (08:33)
[2024-11-16] MEDS: ZOVIRAX 400 MG PO (08:33)
[2024-11-16] MEDS: PROZAC 60 MG PO (08:33)
[2024-11-16] MEDS: TENORMIN 25 MG PO (08:34)
--- NOTE | 2024-11-16 10:00 | W.PN.HOSP.TC ---
Addendum entered and electronically signed by Zora Laguerre MD 11/16/24 13:02:
total DC time 36 min
Original Note:
Today's Communication/Plan
-
see A/P
Assessment / Plan
Assessment / Plan
A/P:
# Generalized abdominal pain Likely from colitis- infectious versus medication induced.
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
CT abdomen and pelvis with IV contrast 11/14 noted mild distention of the ascending colon, transverse colon, and descending colon with liquid stool. MILD ACUTE PANCOLITIS. SEVERE DIFFUSE HEPATIC STEATOSIS.
stool studies pending, can follow up outpt
C diff cancelled due to formed stool
DC further Zosyn given colitis felt likely viral induced and pt has h/o C diff
Advance diet to low residue, ok for DC if tolerates solid food
Follow up with GI outpt for C scope eval
# Migraine
At home patient is on Ubrelvy, nasal Zomig, Aleve and Benadryl.
Tylenol and Ibuprofen as needed for now
# Essential hypertension
Continue atenolol
# Trigeminal neuralgia
Continue pregabalin
# DM 2
Hold Trulicity
DC other modalities such as metformin and glimepiride
DVT prophylaxis�SCDs
CODE STATUS�full code
DW GI
Anticipated Discharge: Today
Subjective/Interval History
-
Date of Service: November 16, 2024
Objective Data
-
Labs:
Laboratory Results
11/16/24
07:25
WBC 6.4
Hgb 13.6
Hct 41.2
Plt Count 312
Sodium 136
Potassium 4.4
Chloride 104
Carbon Dioxide 25
BUN 5 L
Creatinine 0.6
Glucose 111 H
Calcium 8.6
Total Bilirubin 0.5
AST 61 H
ALT 95 H
Alkaline Phosphatase 68
Vital Signs:
Vital Signs
Temp Pulse Resp BP Pulse Ox
36.5 C 65 16 123/85 97
11/16/24 07:10 11/16/24 07:10 11/16/24 07:10 11/16/24 07:10 11/16/24 07:10
I&O
11/15/24 11/16/24 11/17/24
06:59 06:59 06:59
Intake Total 1000 / 1000 2480 / 2480
Balance 1000 / 1000 2480 / 2480
Review of Systems
-
All other systems: Reviewed and negative (As per history)
Abdomen/GI: Denies Abdominal Pain (resolved)
Physical Exam
-
General: Well Developed, Well Nourished, No Apparent Distress, Comfortable and Conversant
HEENT: Normocephalic, Atraumatic and Moist Mucous Membranes
Respiratory: Clear to Auscultation and Non Labored Respirations; Negative Accessory Resp Muscle Use
Cardiac: Regular Rhythm and S1/S2
GI: Soft, Nontender, Nondistended and Normal Bowel Sounds
Skin: Warm and Dry
Neuro: Awake, Alert, Oriented and AO x 3
Psych: Calm and Intact Judgement/Insight
Data Reviewed
-
Labs: Labs Reviewed by me
--- NOTE | 2024-11-16 10:28 | CM ---
Met with patient at bedside
Discharge today to home.
No needs
PLAN: Home, no needs
boyfriend to transport
[2024-11-16 11:39] VITALS: BP 135/91
--- NOTE | 2024-11-16 12:50 | W.DCSUMMARY ---
Discharge Summary
Discharge Data
Date of Admission: 11/14/24
Date of Discharge: 11/16/24
-
Pending Results: No
Hospital Course
Principal Diagnosis:
Generalized abdominal pain likely due to viral colitis versus medication side effect with Trulicity
Chronic Diagnoses:�
Migraine headache
Essential hypertension on atenolol
Trigeminal neuralgia on Pregabalin
Beb-ovfzpuh-[id number] diabetes
Consultations:�
Gastroenterology
Procedures:�
None
Clinical course:�
This is a 39-year-old female with past medical history as stated above, who presented with generalized abdominal pain with CT showing mild distention in the colon.
Problem 1:
Generalized abdominal pain likely due to viral colitis versus medication side effect with Trulicity
Patient was started on Trulicity 2 weeks ago prior to admission. Trulicity was discontinued this admission.
She did receive empiric antibiotic Zosyn while in the hospital, and this was subsequently discontinued given low likelihood of colitis being bacterial and her history of C. difficile infection.
C. difficile was ruled out this admission with formed stool.
At the time of discharge, her stool culture was still pending, which she can follow-up with her PCP outpatient.
Her diet was advanced to low residue which she tolerated well.
She can follow-up with GI outpatient for C-scope evaluation.
As for the rest of her medical problems, they were stable during her hospital stay.
Discharge Plan
-
Patient Disposition: Home (Routine Discharge)
Discharge Diagnosis/Procedures: Generalized abdominal pain likely from viral colitis vs medication induced.
Condition: Good
Diet: As tolerated, Low Fat, Low Cholesterol and Low Residue
Additional Diets: low residue for 1 week
Activity: As tolerated
Driving Restrictions: As prior to admission
Referrals:
Cj Milan DO [Active] - 12/24/24 11:30 am (Follow-up with Dr. Milan at [facility]. Appointment on 12/24/2024 at 11:30 AM)
Chin Batista CRNP [Family Provider] - in less than 1 week
Prescriptions:
Continued
ondansetron HCl 4 mg Tablet
4 mg PO Q6HPRN PRN (Reason: nausea/vomiting)
atenolol 25 mg Tablet
25 mg PO BID
acyclovir 400 mg Tablet
400 mg PO BID
pregabalin 75 mg Capsule
75 mg PO BID
fluoxetine 20 mg Capsule
80 mg PO DAILY
Ubrelvy 50 mg Tablet
50 mg PO DAILYPRN PRN (Reason: mirgraines)
Discontinued
Trulicity 0.75 mg/0.5 mL Pen Injector
0.75 mg SC TU
Patient Comments:
11/15/24-patient said she say may had a reaction to this and did not take her recent dose
Discharge Orders:
Discharge Patient (As Directed); Ordered 11/16/24
Ordered By: Zora Laguerre
Discharge Date and Time
Discharge Date/Time: 11/16/24 12:23
Print Language: [id number]
== END 2024-11-16 12:23 | disposition home or self-care (01) | DRG 392 ==
LOC: 4 WEST ACU 23:28
PROVIDERS: Emergency Medicine; Nurse Practitioner Family; ADMITTING PHYSICIAN Hospitalist; ATTENDING PHYSICIAN Internal Medicine; CONSULT PHYSICIAN Student in an Organized Health Care Education/Training Program; EMERGENCY PHYSICIAN Emergency Medicine; FAMILY PHYSICIAN Nurse Practitioner Family
DX: A08.4 Viral intestinal infection, unspecified (principal); E11.9 Type 2 diabetes mellitus without complications; I10 Essential (primary) hypertension; E28.2 Polycystic ovarian syndrome; G43.909 Migraine, unspecified, not intractable, without status migrainosus; G50.0 Trigeminal neuralgia; F17.290 Nicotine dependence, other tobacco product, uncomplicated; F41.9 Anxiety disorder, unspecified; K59.00 Constipation, unspecified; K76.0 Fatty (change of) liver, not elsewhere classified; N80.9 Endometriosis, unspecified; Z79.84 Long term (current) use of oral hypoglycemic drugs; Z91.040 Latex allergy status; Z88.3 Allergy status to other anti-infective agents; Z88.2 Allergy status to sulfonamides; Z88.1 Allergy status to other antibiotic agents; Z79.899 Other long term (current) drug therapy
CPT/HCPCS: 74177; 80048; 80053; 82962; 83690; 84703; 85025; 85027; 87045; 87046; 87077; 87427; 96374; 96375; 99285; 99406; Q9967